=== PATIENT | male | born 1970 | race Caucasian/White ===

== ENCOUNTER 2021-08-01 17:30 | Emergency (ER) | payer MEDICAID, OTHER ==
[2021-08-01] MEDS ORDERED: PROTONIX 40 MG IV IV ONE ×2 (18:32→18:53)
[2021-08-01] MEDS ORDERED: Zofran 4 MG/2 ML VIAL IV ONE (18:32)
[2021-08-01] MEDS ORDERED: Sodium Chloride 0.9% 1000 ML 1,000 ML IV STA (18:32)
--- NOTE | 2021-08-01 18:36 | ERPHSYRPT ---
- History of Present Illness Historian: patient Exam Limitations: no limitations Patient Subjective Stated Complaint: Pt states "On sunday I was vomiting and then the diarrhea started and I just feel terrible." Triage Nursing Assessment: Pt presented alert and oriented X 3, skin wpd tp ambulates with an upright steady gait, able to speak in clear full sentences. Pt in no apparent respiratory distress. Physician History: 51yo wm w N/V/D x 3 days w diffuse abdominal pain rated a 3/10. Pt denies fever/melena/hematochezia/hematemesis/chest pain/cough/dysuria/hematuria/ Pt drinks 6 beers a day. Timing/Duration: day(s) (3 days) Activities at Onset: rest Quality: cramping Abdominal Pain Onset Location: generalized abdomen Pain Radiation: no radiation Severity of Pain-Max: moderate Severity of Pain-Current: mild Modifying Factors: Improves With: vomiting Associated Symptoms: diarrhea, loss of appetite, nausea, vomiting, No back, No chest pain, No diaphoresis, No fever/chills, No fatigue, No headache, No heartbu rn, No neck pain, No rash, No shortness of breath, No syncope, No testicular pain, No weakness Previous symptoms: no prior history Allergies/Adverse Reactions: No Known Drug Allergies Allergy (Verified 08/01/21 17:51) Home Medications: Gabapentin 300 mg PO TID 01/30/17 [History] Hx Tetanus, Diphtheria Vaccination/Date Given: No Hx Influenza Vaccination/Date Given: No Hx Pneumococcal Vaccination/Date Given: No Immunizations Up to Date: Yes Travel Risk - International Travel Have you traveled outside of the country in past 3 weeks: No - Coronavirus Screening Are you exhibiting any of the following symptoms?: No Close contact with a COVID-19 positive Pt in past 14-21 Days: No - Vaccine Status Have you recieved a Covid-19 vaccination: No - Review of Systems Constitutional: No Symptoms, Weakness Eyes: No Symptoms Ears, Nose, & Throat: No Symptoms Respiratory: No Symptoms Cardiac: No Symptoms Abdominal/Gastrointestinal: Abdominal Pain, Nausea, Vomiting, Diarrhea, No Constipation, No Hematemesis, No Hematochezia, No Melena, No Dysphagia Genitourinary Symptoms: No Symptoms Musculoskeletal: No Symptoms Skin: No Symptoms Neurological: No Symptoms Psychological: No Symptoms Endocrine: No Symptoms Hematologic/Lymphatic: No Symptoms Immunological/Allergic: No Symptoms - Past Medical History Pertinent Past Medical History: Yes Cardiac History: Hypertension Musculoskeletal History: Arthritis, Other Psycho-Social History: Anxiety Other Medical History: chronic back pain - Past Surgical History Past Surgical History: Yes Other Surgical History: ear and sinus - Social History Smoking Status: Former smoker Exposure to second hand smoke: Yes Drug Use: none Patient Lives Alone: No Significant Family History: no pertinent family hx - Nursing Vital Signs Nursing Vital Signs: Initial Vital Signs Temperature 97.4 F 08/01/21 17:46 Pulse Rate 93 H 08/01/21 17:46 Respiratory Rate 20 08/01/21 17:46 Blood Pressure 161/102 08/01/21 17:46 O2 Sat by Pulse Oximetry 99 08/01/21 17:46 Pain Scale Pain Intensity 3 Hypertensive - Physical Exam General Appearance: no apparent distress Eye Exam: PERRL/EOMI, eyes nml inspection Ears, Nose, Throat Exam: normal ENT inspection, TMs normal, pharynx normal, moist mucous membranes Neck Exam: normal inspection, non-tender, No supple, No full range of motion, No meningismus, No mass, No Brudzinski, No Kernig's Respiratory Exam: normal breath sounds, lungs clear, airway intact, No respiratory distress Cardiovascular Exam: regular rate/rhythm, normal heart sounds, normal peripheral pulses, No murmur Gastrointestinal/Abdomen Exam: soft, normal bowel sounds, No tenderness Back Exam: normal inspection, normal range of motion, No CVA tenderness, No vertebral tenderness Extremity Exam: normal inspection, normal range of motion, pelvis stable Neurologic Exam: alert, oriented x 3, cooperative, customer experience manager II-XII nml as tested, normal mood/affect, nml cerebellar function, nml station & gait, sensation nml, No motor deficits, No sensory deficit Skin Exam: normal color, warm, dry, No rash Lymphatic Exam: No adenopathy SpO2 Interpretation: normal SpO2: 99 O2 Delivery: Room Air - Course Nursing assessment & vital signs reviewed: Yes - CT Exams Abdomen/Pelvis CT Interpretation: Discussed w/radiologist (Fatty Liver/diverticulosis) Ordered Tests: Active Orders 24 hr Category Date Time Status IV Insertion STAT Care 08/01/21 18:32 Completed ABDOMEN AND PELVIS W CONTRAST [CT] Stat Exams 08/01/21 19:57 Taken AMYLASE Stat Lab 08/01/21 18:30 Completed CBC W DIFF Stat Lab 08/01/21 18:30 Completed CMP Stat Lab 08/01/21 18:30 Completed ETHYL ALCOHOL Stat Lab 08/01/21 18:30 Completed LIPASE Stat Lab 08/01/21 18:30 Completed TROPONIN Q3H Lab 08/01/21 18:30 Completed UA W/RFX UR CULTURE Stat Lab 08/01/21 18:51 Completed Medication Summary Discontinued Medications Generic Name Dose Route Start Last Admin Trade Name Karina PRN Reason Stop Dose Admin Sodium Chloride 1,000 mls @ 999 mls/hr 08/01/21 18:32 08/01/21 20:04 Sodium Chloride 0.9% 1000 Ml IV 08/01/21 19:32 Infused .Q1H1M STA Infusion Sodium Chloride Confirm 08/01/21 18:53 Sodium Chloride 0.9% 1000 Ml Administered 08/01/21 18:54 Dose 1,000 mls @ ud .ROUTE .STK-MED ONE Ondansetron HCl 4 mg 08/01/21 18:32 08/01/21 18:55 Ondansetron Hcl 4 Mg/2 Ml Vial IV 08/01/21 18:33 4 mg STAT ONE Administration Ondansetron HCl Confirm 08/01/21 18:53 Ondansetron Hcl 4 Mg/2 Ml Vial Administered 08/01/21 18:54 Dose 4 mg .ROUTE .STK-MED ONE Pantoprazole Sodium 40 mg 08/01/21 18:32 08/01/21 18:55 Pantoprazole 40 Mg Vial IV 08/01/21 18:33 40 mg STAT ONE Administration Pantoprazole Sodium Confirm 08/01/21 18:53 Pantoprazole 40 Mg Vial Administered 08/01/21 18:54 Dose 40 mg IV .STK-MED ONE Lab/Rad Data: Laboratory Result Diagrams 08/01/21 18:30 08/01/21 18:30 Laboratory Results 08/01/21 08/01/21 08/01/21 Range/Units 18:51 18:30 18:30 WBC (4.0-10.5) K/mm3 RBC (4.1-5.6) M/mm3 Hgb (12.5-18.0) gm/dl Hct (42-50) % MCV (78-100) fl MCH (26-32) pg MCHC (32-36) g/dl RDW (11.5-14.0) % Plt Count (150-450) K/mm3 MPV (7.5-11.0) fl Gran % (36.0-66.0) % Eos # (Auto) (0-0.5) Absolute Lymphs (auto) (1.0-4.6) Absolute Monos (auto) (0.0-1.3) Lymphocytes % (24.0-44.0) % Monocytes % (0.0-12.0) % Eosinophils % (0.00-5.0) % Basophils % (0.0-0.4) % Absolute Granulocytes (1.4-6.9) Basophils # (0-0.4) Sodium (137-145) mmol/L Potassium (3.5-5.1) mmol/L Chloride (98-107) mmol/L Carbon Dioxide (22-30) mmol/L Anion Gap (5-15) MEQ/L BUN (9-20) mg/dL Creatinine (0.66-1.25) mg/dL Estimated GFR ML/MIN Glucose (74-106) mg/dL Calcium (8.4-10.2) mg/dL Total Bilirubin (0.2-1.3) mg/dL AST (17-59) U/L ALT (0-50) U/L Alkaline Phosphatase (38-126) U/L Troponin I < 0.012 (0.000-0.034) ng/mL Serum Total Protein (6.3-8.2) g/dL Albumin (3.5-5.0) g/dL Amylase (30-110) U/L Lipase (23-300) U/L Urine Color YELLOW (YELLOW) Urine Appearance SLIGHTLY CLOUDY (CLEAR) Urine pH 7.0 (5-6) Ur Specific Morgan 1.028 (1.005-1.025) Urine Protein 100 (Negative) Urine Ketones SMALL (NEGATIVE) Urine Blood NEGATIVE (0-5) Freddy/ul Urine Nitrite NEGATIVE (NEGATIVE) Urine Bilirubin NEGATIVE (NEGATIVE) Urine Urobilinogen 2 (0-1) mg/dL Ur Leukocyte Esterase NEGATIVE (NEGATIVE) Urine WBC (Auto) NONE (0-5) /HPF Urine RBC (Auto) 0-2 (0-2) /HPF U Epithel Cells (Auto) NONE (FEW) /HPF Urine Bacteria (Auto) NONE (NEGATIVE) /HPF Urine Mucus (Auto) SLIGHT (NEGATIVE) /HPF Urine Culture Reflexed NO (NO) Urine Glucose NEGATIVE (NEGATIVE) mg/dL Ethyl Alcohol < 10 (0-10) mg/dL 08/01/21 08/01/21 Range/Units 18:30 18:30 WBC 13.9 H (4.0-10.5) K/mm3 RBC 4.00 L (4.1-5.6) M/mm3 Hgb 9.6 L (12.5-18.0) gm/dl Hct 33.0 L (42-50) % MCV 82.5 (78-100) fl MCH 24.0 L (26-32) pg MCHC 29.1 L (32-36) g/dl RDW 19.9 H (11.5-14.0) % Plt Count 270 (150-450) K/mm3 MPV 9.7 (7.5-11.0) fl Gran % 81.4 H (36.0-66.0) % Eos # (Auto) 0 (0-0.5) Absolute Lymphs (auto) 1.19 (1.0-4.6) Absolute Monos (auto) 1.39 H (0.0-1.3) Lymphocytes % 8.5 L (24.0-44.0) % Monocytes % 10.0 (0.0-12.0) % Eosinophils % 0.0 (0.00-5.0) % Basophils % 0.1 (0.0-0.4) % Absolute Granulocytes 11.34 H (1.4-6.9) Basophils # 0.01 (0-0.4) Sodium 142 (137-145) mmol/L Potassium 3.1 L (3.5-5.1) mmol/L Chloride 98 (98-107) mmol/L Carbon Dioxide 29 (22-30) mmol/L Anion Gap 17.3 H (5-15) MEQ/L BUN 21 H (9-20) mg/dL Creatinine 0.98 (0.66-1.25) mg/dL Estimated GFR > 60.0 ML/MIN Glucose 173 H (74-106) mg/dL Calcium 9.2 (8.4-10.2) mg/dL Total Bilirubin 1.00 (0.2-1.3) mg/dL AST 34 (17-59) U/L ALT 30 (0-50) U/L Alkaline Phosphatase 64 (38-126) U/L Troponin I (0.000-0.034) ng/mL Serum Total Protein 7.7 (6.3-8.2) g/dL Albumin 4.4 (3.5-5.0) g/dL Amylase 75 (30-110) U/L Lipase 179 (23-300) U/L Urine Color (YELLOW) Urine Appearance (CLEAR) Urine pH (5-6) Ur Specific Morgan (1.005-1.025) Urine Protein (Negative) Urine Ketones (NEGATIVE) Urine Blood (0-5) Freddy/ul Urine Nitrite (NEGATIVE) Urine Bilirubin (NEGATIVE) Urine Urobilinogen (0-1) mg/dL Ur Leukocyte Esterase (NEGATIVE) Urine WBC (Auto) (0-5) /HPF Urine RBC (Auto) (0-2) /HPF U Epithel Cells (Auto) (FEW) /HPF Urine Bacteria (Auto) (NEGATIVE) /HPF Urine Mucus (Auto) (NEGATIVE) /HPF Urine Culture Reflexed (NO) Urine Glucose (NEGATIVE) mg/dL Ethyl Alcohol (0-10) mg/dL - Progress Progress: improved Progress Note: 08/01/21 21:28 1L NS bolus/40mg IV Protonix/4mg IV Zofran w improvement Counseled pt/family regarding: lab results, diagnosis, need for follow-up, rad results - Departure Departure Disposition: Home Clinical Impression: Nausea & vomiting, Fatty liver, Microcytic anemia Condition: Stable Critical Care Time: No Referrals: TERE DE PAZ NP [Primary Care Provider] - Follow up/PCP as directed Instructions: Anemia Caused by Low Iron, Adult (DC), Nausea and Vomiting, Adult (DC) Additional Instructions: Follow up with your family MD in 1-2 days You need to have a colonoscopy Zofran for nausea/vomiting Decrease your alcohol consumption Return to ER for increasing pain or temperature greater than 100.5 Covid19 test will be back in 2-3 days Forms: Work/School Release Form Prescriptions: Ondansetron HCl [Zofran] 4 mg PO Q6H PRN #10 tablet PRN Reason: Nausea/Vomiting
[2021-08-01 18:41] LABS: Absolute Neutrophil Ct (ANC) 11.34 (1.4-6.9); BASOPHIL % 0.1 % (0.0-0.4); Basophil (Absolute #) 0.01 (0-0.4); Eosinophil (Absolute #) 0 (0-0.5); Hemoglobin 9.6 gm/dl (12.5-18.0); Lymphocyte (Absolute #) 1.19 (1.0-4.6); Lymphocytes % 8.5 % (24.0-44.0); Mean Cell Volume 82.5 fl (78-100); Mean Corpuscular Hgb Concent. 29.1 g/dl (32-36); Mean Platelet Volume 9.7 fl (7.5-11.0); Monocyte (Absolute #) 1.39 (0.0-1.3); Neutrophil % 81.4 % (36.0-66.0); Platelet Count 270 K/mm3 (150-450); Red Cell Distribution Width 19.9 % (11.5-14.0); White Blood Count 13.9 K/mm3 (4.0-10.5)
[2021-08-01 18:45] LABS: ALBUMIN 4.4 g/dL (3.5-5.0); ALKALINE PHOSPHATASE 64 U/L (38-126); AMYLASE 75 U/L (30-110); ANION GAP 17.3 MEQ/L (5-15); BLOOD UREA NITROGEN 21 mg/dL (9-20); CHLORIDE 98 mmol/L (98-107); Calcium 9.2 mg/dL (8.4-10.2); Carbon Dioxide 29 mmol/L (22-30); Creatinine 1 0.98 mg/dL (0.66-1.25); EST GLOMERULAR FILTRATION RATE > 60.0 ML/MIN; Glucose 173 mg/dL (74-106); LIPASE 179 U/L (23-300); Potassium 3.1 mmol/L (3.5-5.1); SGOT/AST 34 U/L (17-59); SGPT/ALT 30 U/L (0-50); SODIUM 142 mmol/L (137-145); Total Protein 7.7 g/dL (6.3-8.2)
[2021-08-01] MEDS ORDERED: Sodium Chloride 0.9% 1000 ML 1,000 ML ONE (18:53)
[2021-08-01] MEDS ORDERED: Zofran 4 MG/2 ML VIAL ONE (18:53)
[2021-08-01 19:48] LABS: Appearance SLIGHTLY CLOUDY (CLEAR); Bilirubin NEGATIVE (NEGATIVE); Blood NEGATIVE Ery/ul (0-5); Glucose NEGATIVE (NEGATIVE); Ketones SMALL (NEGATIVE); Leukocyte Esterase NEGATIVE (NEGATIVE); Mucus SLIGHT /HPF (NEGATIVE); Nitrite NEGATIVE (NEGATIVE); Protein,Urine Dip 100 (Negative); RBC 0-2 /HPF (0-2); Specific Gravity 1.028 (1.005-1.025); Urobilinogen 2 mg/dL (0-1)
[2021-08-01 21:22] VITALS: BP 157/91; PULSE 89
[2021-08-01 21:32] VITALS: O2SAT 99
--- NOTE | 2021-08-02 08:52 | XRAY ---
Indication: Abdomen pain, nausea, vomiting, diarrhea. Multiple contiguous axial images obtained through the abdomen and pelvis using 80 cc Isovue 370 contrast. Comparison: March 25, 2021. Lung bases again demonstrates minimal fibrosis/scarring and tiny medial left lower lobe calcified granuloma. Heart is not enlarged. Noncontrasted stomach and bowel loops appear nonobstructed with normal appendix. Again minimal scattered colonic diverticulosis. Previous diverticulitis has resolved. No free fluid/air. Stable mild diffuse fatty liver and tiny splenic calcified granulomas. Remaining liver, gallbladder, pancreas, spleen, adrenal glands, kidneys, ureters, bladder, and aorta are unremarkable. No pathologic retroperitoneal lymphadenopathy. Osseous structures intact again with minimal degenerative changes throughout the lumbar spine. Impression: 1. Again colonic diverticulosis, fatty liver, and old granulomatous disease. 2. Remaining CT abdomen/pelvis with contrast exam is negative.
== END 2021-08-01 21:48 | disposition home or self-care (01) ==
LOC: ED 17:30
DX: D50.9 Iron deficiency anemia, unspecified (principal); K76.0 Fatty (change of) liver, not elsewhere classified; R11.2 Nausea with vomiting, unspecified; R19.7 Diarrhea, unspecified; I10 Essential (primary) hypertension
CPT/HCPCS: 36000; 36415; 74177; 80053; 80307; 81001; 82150; 83690; 84484; 85025; 96360; 96374; 96375; 99284; U0003; J2405; G0480

== ENCOUNTER 2021-08-08 21:14 | Inpatient (IN) | payer OTHER, SELFPAY ==
[2021-08-08] MEDS ORDERED: Zofran 4 MG/2 ML VIAL IV ONE (21:23)
[2021-08-08] MEDS ORDERED: MORPHINE SULFATE 4 MG INJ IV ONE (21:23)
[2021-08-08] MEDS ORDERED: Sodium Chloride 0.9% 1000 ML 1,000 ML IV STA (21:23)
[2021-08-08] MEDS ORDERED: MORPHINE SULFATE 4 MG INJ ONE (21:27)
[2021-08-08] MEDS ORDERED: Sodium Chloride 0.9% 1000 ML 1,000 ML ONE (21:27)
[2021-08-08] MEDS ORDERED: Zofran 4 MG/2 ML VIAL ONE (21:27)
[2021-08-08 21:48] LABS: Hematocrit 36.2 % (42-50); Hemoglobin 10.6 gm/dl (12.5-18.0); Mean Cell Volume 82.6 fl (78-100); Mean Corpuscular Hemoglobin 24.2 pg (26-32); Mean Corpuscular Hgb Concent. 29.3 g/dl (32-36); Mean Platelet Volume 8.8 fl (7.5-11.0); Platelet Count 502 K/mm3 (150-450); Red Blood Count 4.38 M/mm3 (4.1-5.6); Red Cell Distribution Width 19.7 % (11.5-14.0); White Blood Count 16.6 K/mm3 (4.0-10.5)
--- NOTE | 2021-08-08 21:51 | ERPHSYRPT ---
- History of Present Illness Time Seen by Provider: 08/08/21 21:30 Historian: patient Exam Limitations: no limitations Patient Subjective Stated Complaint: belly pain and vomiting since yesterday every few hours Triage Nursing Assessment: pt c/o abd pain all over stomach, tender on palpation, hypoactive bs x4 quad. Vomiting off and on since last night. Lungs clear, denies cough or sob or chest pain. Pt was in ER last week with stomach virus, got better, but feeling bad again last night. Physician History: Patient is a 51-year-old male presents to our ED with complaints of generalized abdominal pain. Patient states his abdominal pain started yesterday. Abdominal pain is associated with nausea and vomiting. Patient states he cannot hold food down. No diarrhea. No rash. Patient was in our ED exactly 1 week ago today for the same. Patient had a complete work-up including a CAT scan which was nonremarkable per patient. Patient states his abdominal pain resolved after leaving our ED. But the same pain has reoccurred. No trauma. Patient is otherwise healthy. Patient states that he drinks approximately 6 beers per day. Patient denies smoking. Symptoms are mild to moderate in intensity. No spec [facility] worsening improving factors. Patient voices no other complaints or concerns at this time. Timing/Duration: yesterday Activities at Onset: none Quality: aching Abdominal Pain Onset Location: generalized abdomen Pain Radiation: no radiation Severity of Pain-Max: moderate Severity of Pain-Current: mild Modifying Factors: Improves With: palpation Associated Symptoms: nausea, vomiting, No diarrhea, No shortness of breath, No syncope, No testicular pain, No weakness Previous symptoms: same symptoms as today Allergies/Adverse Reactions: No Known Drug Allergies Allergy (Verified 08/08/21 21:28) Home Medications: Gabapentin 300 mg PO TID 01/30/17 [History] Hx Tetanus, Diphtheria Vaccination/Date Given: No Hx Influenza Vaccination/Date Given: No Hx Pneumococcal Vaccination/Date Given: No Immunizations Up to Date: No Travel Risk - International Travel Have you traveled outside of the country in past 3 weeks: No - Coronavirus Screening Are you exhibiting any of the following symptoms?: Yes Symptoms: Vomiting/Diarrhea, Headaches/Body Aches/Fatigue - Vaccine Status Have you recieved a Covid-19 vaccination: No - Review of Systems Constitutional: No Symptoms, No Fever, No Chills Eyes: No Symptoms Ears, Nose, & Throat: No Symptoms Respiratory: No Symptoms, No Cough, No Dyspnea Cardiac: No Symptoms, No Chest Pain, No Edema, No Syncope Abdominal/Gastrointestinal: No Symptoms, No Abdominal Pain, No Nausea, No Vomiting, No Diarrhea Genitourinary Symptoms: No Symptoms, No Dysuria Musculoskeletal: No Symptoms, No Back Pain, No Neck Pain Skin: No Symptoms, No Rash Neurological: No Symptoms, No Dizziness, No Focal Weakness, No Sensory Changes Psychological: No Symptoms Endocrine: No Symptoms Hematologic/Lymphatic: No Symptoms Immunological/Allergic: No Symptoms All Other Systems: Reviewed and Negative - Past Medical History Pertinent Past Medical History: Yes Neurological History: No Pertinent History ENT History: No Pertinent History Cardiac History: Hypertension Respiratory History: No Pertinent History Endocrine Medical History: No Pertinent History Musculoskeletal History: Arthritis, Other GI Medical History: No Pertinent History History: No Pertinent History Psycho-Social History: Anxiety Male Reproductive Disorders: No Pertinent History Other Medical History: chronic back pain - Past Surgical History Past Surgical History: Yes Neuro Surgical History: No Pertinent History Cardiac: No Pertinent History Respiratory: No Pertinent History Gastrointestinal: No Pertinent History Genitourinary: No Pertinent History Musculoskeletal: No Pertinent History Male Surgical History: No Pertinent History Other Surgical History: ear and sinus - Social History Smoking Status: Former smoker Exposure to second hand smoke: Yes Drug Use: none Patient Lives Alone: No Significant Family History: no pertinent family hx - Nursing Vital Signs Nursing Vital Signs: Initial Vital Signs Temperature 97.6 F 08/08/21 21:15 Pulse Rate 77 08/08/21 21:15 Respiratory Rate 20 08/08/21 21:15 Blood Pressure 144/88 08/08/21 21:15 O2 Sat by Pulse Oximetry 100 08/08/21 21:15 Pain Scale Pain Intensity 8 - Physical Exam General Appearance: no apparent distress, alert Eye Exam: PERRL/EOMI, eyes nml inspection Ears, Nose, Throat Exam: normal ENT inspection, pharynx normal, moist mucous membranes Neck Exam: normal inspection, non-tender, supple, full range of motion Respiratory Exam: normal breath sounds, lungs clear, airway intact, No respiratory distress Cardiovascular Exam: regular rate/rhythm, normal heart sounds, normal peripheral pulses Gastrointestinal/Abdomen Exam: soft, No tenderness, No mass Back Exam: normal inspection, normal range of motion, No CVA tenderness, No ve rtebral tenderness Extremity Exam: normal inspection, normal range of motion, pelvis stable Neurologic Exam: alert, oriented x 3, cooperative, normal mood/affect, nml cerebellar function, sensation nml, No motor deficits Skin Exam: normal color, warm, dry Lymphatic Exam: No adenopathy SpO2 Interpretation: normal SpO2: 100 O2 Delivery: Room Air - Course Nursing assessment & vital signs reviewed: Yes - CT Exams Abdomen/Pelvis CT Interpretation: Tele-radiologist Report (Stomach and bowel show probable perforation of the distal gastric antrum which is best appreciated on sagittal image 97. Small amount of perisplenic free fluid. Small amount of free fluid in the pelvis. Free intraperitoneal gas.) Ordered Tests: Active Orders 24 hr Category Date Time Status Corea [Catheter-[place] Corea] STAT Care 08/08/21 23:58 Active IV Insertion STAT Care 08/08/21 21:23 Active NGT [Gastric Tube Insertion] STAT Care 08/08/21 23:58 Active NPO Diet 08/09/21 00:06 Active ABDOMEN AND PELVIS W CONTRAST [CT] Stat Exams 08/08/21 21:23 Taken CHEST 1 VIEW (PORTABLE) Stat Exams 08/09/21 01:06 Taken CBC W DIFF Stat Lab 08/08/21 21:40 Completed CMP Stat Lab 08/08/21 21:40 Completed LIPASE Stat Lab 08/08/21 21:40 Completed Manual Differential NC Stat Lab 08/08/21 21:40 Completed TROPONIN Q3H Lab 08/08/21 21:40 Completed TROPONIN Q3H Lab 08/09/21 00:28 Completed TROPONIN Q3H Lab 08/09/21 03:30 Ordered TROPONIN Q3H Lab 08/09/21 06:30 Ordered TROPONIN Q3H Lab 08/09/21 09:30 Ordered Transfer Order Routine Transfer 08/09/21 Ordered Medication Summary Generic Name Dose Route Start Last Admin Trade Name Freq PRN Reason Stop Dose Admin Sodium Chloride 1,000 mls @ 150 mls/hr 08/09/21 00:00 08/09/21 00:39 Sodium Chloride 0.9% 1000 Ml IV 09/08/21 00:00 150 mls/hr .Q6H40M GAEL Administration Pantoprazole Sodium 80 mg/ 500 mls @ 50 mls/hr 08/09/21 00:15 08/09/21 00:40 Sodium Chloride IV 09/08/21 00:14 50 mls/hr .Q10H GAEL 50 mls/hr Administration Discontinued Medications Generic Name Dose Route Start Last Admin Trade Name Karina PRN Reason Stop Dose Admin Fentanyl Citrate 100 mcg 08/08/21 22:04 08/08/21 22:06 Fentanyl Citrate 100 Mcg/2 Ml* Vial IV 08/08/21 22:05 100 mcg STAT ONE Administration Fentanyl Citrate Confirm 08/08/21 22:06 Fentanyl Citrate 100 Mcg/2 Ml* Vial Administered 08/08/21 22:07 Dose 100 mcg .ROUTE .STK-MED ONE Hydromorphone HCl 1 mg 08/08/21 23:55 08/09/21 00:39 Hydromorphone 1 Mg/1ml Inj 1 Mg/Ml Syringe IV 08/08/21 23:56 1 mg STAT ONE Administration Hydromorphone HCl Confirm 08/09/21 00:36 Hydromorphone 1 Mg/1ml Inj 1 Mg/Ml Syringe Administered 08/09/21 00:37 Dose 1 mg .ROUTE .STK-MED ONE Sodium Chloride 1,000 mls @ 999 mls/hr 08/08/21 21:23 08/08/21 22:40 Sodium Chloride 0.9% 1000 Ml IV 08/08/21 22:23 Infused .Q1H1M STA Infusion Sodium Chloride Confirm 08/08/21 21:27 Sodium Chloride 0.9% 1000 Ml Administered 08/08/21 21:28 Dose 1,000 mls @ ud .ROUTE .STK-MED ONE Piperacillin Sod/Tazobactam 100 mls @ 200 mls/hr 08/08/21 23:57 08/09/21 00:38 Sod 3.375 gm/ Sodium Chloride IV 08/09/21 00:26 200 mls/hr STAT ONE Administration Sodium Chloride Confirm 08/09/21 00:37 Sodium Chloride 100ml Mini-Bag Plus Administered 08/09/21 00:38 Dose 100 mls @ ud IV .STK-MED ONE Sodium Chloride Confirm 08/09/21 00:38 Sodium Chloride 0.9% 500 Ml Administered 08/09/21 00:39 Dose 500 mls @ ud IV .STK-MED ONE Morphine Sulfate 4 mg 08/08/21 21:23 08/08/21 21:30 Morphine Sulfate 4 Mg/Ml Injection IV 08/08/21 21:24 4 mg STAT ONE Administration Morphine Sulfate Confirm 08/08/21 21:27 Morphine Sulfate 4 Mg/Ml Injection Administered 08/08/21 21:28 Dose 4 mg .ROUTE .STK-MED ONE Ondansetron HCl 4 mg 08/08/21 21:23 08/08/21 21:30 Ondansetron Hcl 4 Mg/2 Ml Vial IV 08/08/21 21:24 4 mg STAT ONE Administration Ondansetron HCl Confirm 08/08/21 21:27 Ondansetron Hcl 4 Mg/2 Ml Vial Administered 08/08/21 21:28 Dose 4 mg .ROUTE .STK-MED ONE Pantoprazole Sodium Confirm 08/09/21 00:38 Pantoprazole 40 Mg Vial Administered 08/09/21 00:39 Dose 80 mg IV .STK-MED ONE Piperacillin Sod/Tazobactam Sod Confirm 08/09/21 00:37 Piperacillin/Tazobactam Sodium 3.375 Gm Vial Administered 08/09/21 00:38 Dose 3.375 gm IV .STK-MED ONE Lab/Rad Data: Laboratory Result Diagrams 08/08/21 21:40 08/08/21 21:40 Laboratory Results 08/09/21 08/09/21 08/08/21 Range/Units 00:28 00:08 21:40 WBC (4.0-10.5) K/mm3 RBC (4.1-5.6) M/mm3 Hgb (12.5-18.0) gm/dl Hct (42-50) % MCV (78-100) fl MCH (26-32) pg MCHC (32-36) g/dl RDW (11.5-14.0) % Plt Count (150-450) K/mm3 MPV (7.5-11.0) fl Segmented Neutrophils (36.-66.) % Lymphocytes (Manual) (24-44) % Monocytes (Manual) (0.0-12.0) % Platelet Estimate (NORMAL) RBC Morphology Anisocytosis Sodium (137-145) mmol/L Potassium (3.5-5.1) mmol/L Chloride (98-107) mmol/L Carbon Dioxide (22-30) mmol/L Anion Gap (5-15) MEQ/L BUN (9-20) mg/dL Creatinine (0.66-1.25) mg/dL Estimated GFR ML/MIN Glucose (74-106) mg/dL Calcium (8.4-10.2) mg/dL Total Bilirubin (0.2-1.3) mg/dL AST (17-59) U/L ALT (0-50) U/L Alkaline Phosphatase (38-126) U/L Troponin I < 0.012 < 0.012 (0.000-0.034) ng/mL Serum Total Protein (6.3-8.2) g/dL Albumin (3.5-5.0) g/dL Lipase (23-300) U/L Influenza Type A Ag NEGATIVE (NEGATIVE) Influenza Type B Ag NEGATIVE (NEGATIVE) RSV (PCR) NEGATIVE (Negative) SARS-CoV-2 (PCR) NEGATIVE (NEGATIVE) 08/08/21 08/08/21 Range/Units 21:40 21:40 WBC 16.6 H (4.0-10.5) K/mm3 RBC 4.38 (4.1-5.6) M/mm3 Hgb 10.6 L (12.5-18.0) gm/dl Hct 36.2 L (42-50) % MCV 82.6 (78-100) fl MCH 24.2 L (26-32) pg MCHC 29.3 L (32-36) g/dl RDW 19.7 H (11.5-14.0) % Plt Count 502 H (150-450) K/mm3 MPV 8.8 (7.5-11.0) fl Segmented Neutrophils 89 H (36.-66.) % Lymphocytes (Manual) 6 L (24-44) % Monocytes (Manual) 5 (0.0-12.0) % Platelet Estimate NORMAL (NORMAL) RBC Morphology ABNORMAL Anisocytosis 1+ Sodium 138 (137-145) mmol/L Potassium 4.0 (3.5-5.1) mmol/L Chloride 97 L (98-107) mmol/L Carbon Dioxide 23 (22-30) mmol/L Anion Gap 22.4 H (5-15) MEQ/L BUN 10 (9-20) mg/dL Creatinine 1.04 (0.66-1.25) mg/dL Estimated GFR > 60.0 ML/MIN Glucose 237 H (74-106) mg/dL Calcium 9.1 (8.4-10.2) mg/dL Total Bilirubin 1.10 (0.2-1.3) mg/dL AST 38 (17-59) U/L ALT 57 H (0-50) U/L Alkaline Phosphatase 76 (38-126) U/L Troponin I (0.000-0.034) ng/mL Serum Total Protein 7.5 (6.3-8.2) g/dL Albumin 4.3 (3.5-5.0) g/dL Lipase 206 (23-300) U/L Influenza Type A Ag (NEGATIVE) Influenza Type B Ag (NEGATIVE) RSV (PCR) (Negative) SARS-CoV-2 (PCR) (NEGATIVE) - Progress Progress: improved Progress Note: Case discussed with Dr. Dusty Alicea. He states patient may stay in our hospital. He advises pain medication, Zosyn antibiotic, NG tube, Corea catheter, IV fluids, and a Protonix drip. All ordered. Plan of care discussed with patient. He agrees to admission [facility] for further evaluation and treatment. Case discussed with Dr. Roberts who accepts admission to observation. Plan of care discussed with patient. He agrees to admission at [facility] for further evaluation and treatment. Portions of this note were created with voice recognition technology. There may be grammatical, spelling, punctuation or sound alike errors 08/09/21 00:[address] Dorcas Caballero Counseled pt/family regarding: lab results, diagnosis, rad results - Departure Departure Disposition: Observation Clinical Impression: Abdominal pain, Leukocytosis, Nausea & vomiting, Thrombocytosis, High anion gap metabolic acidosis, Perforated gastric ulcer, Hyperglycemia Condition: Stable Critical Care Time: No Referrals: TERE DE PAZ NP [Primary Care Provider] - Follow up/PCP as directed
[2021-08-08] MEDS ORDERED: SUBLIMAZE 100 MCG/2 ML IV ONE (22:04)
[2021-08-08] MEDS ORDERED: SUBLIMAZE 100 MCG/2 ML ONE (22:06)
[2021-08-08 22:26] LABS: ALBUMIN 4.3 g/dL (3.5-5.0); ALKALINE PHOSPHATASE 76 U/L (38-126); ANION GAP 22.4 MEQ/L (5-15); BLOOD UREA NITROGEN 10 mg/dL (9-20); CHLORIDE 97 mmol/L (98-107); Calcium 9.1 mg/dL (8.4-10.2); Carbon Dioxide 23 mmol/L (22-30); Creatinine 1 1.04 mg/dL (0.66-1.25); EST GLOMERULAR FILTRATION RATE > 60.0 ML/MIN; Glucose 237 mg/dL (74-106); LIPASE 206 U/L (23-300); SGOT/AST 38 U/L (17-59); SODIUM 138 mmol/L (137-145); Total Protein 7.5 g/dL (6.3-8.2)
[2021-08-08 22:32] LABS: SGPT/ALT 57 U/L (0-50)
[2021-08-08 23:39] LABS: Lymphocytes 6 % (24-44); Monocyte 5 % (0.0-12.0); Neutrophils 89 % (36.-66.); Platelet Estimate NORMAL (NORMAL); Total Cells Counted 100
[2021-08-08 23:40] LABS: ANISOCYTOSIS 1+
[2021-08-08] MEDS ORDERED: Hydromorphone 1 mg/ml Injection IV ONE (23:55)
[2021-08-08] MEDS ORDERED: Zosyn 3.375 GM Vial 3.375 GM in Sodium Chloride 100ML MINI-BAG PLUS 100 ML IV ONE (23:57)
[2021-08-09] MEDS ORDERED: Hydromorphone 1 mg/ml Injection ONE (00:36)
[2021-08-09] MEDS ORDERED: Sodium Chloride 100ML MINI-BAG PLUS 100 ML IV ONE ×2 (00:37→05:10)
[2021-08-09] MEDS ORDERED: Zosyn 3.375 GM Vial IV ONE ×2 (00:37→05:09)
[2021-08-09] MEDS ORDERED: Sodium Chloride 0.9% 1000 ML 1,000 ML ONE (00:37)
[2021-08-09] MEDS ORDERED: PROTONIX 40 MG IV IV ONE (00:38)
[2021-08-09] MEDS ORDERED: Sodium Chloride 0.9% 500 ML 500 ML IV ONE (00:38)
[2021-08-09] MEDS: PROTONIX 40 MG IV*** 80 MG in Sodium Chloride 0.9% 500 ML 500 ML IV SCH ×2 (00:40→14:35)
[2021-08-09 01:08] LABS: INFLUENZA A NEGATIVE (NEGATIVE); INFLUENZA B NEGATIVE (NEGATIVE); RESPIRATORY SYNCTIAL VIRUS NEGATIVE (Negative); SARS-CoV-2 Xpert Express NEGATIVE (NEGATIVE)
[2021-08-09] MEDS ORDERED: Sodium Chloride 0.9% 1000 ML 1,000 ML IV SCH ×2 (02:04)
[2021-08-09] MEDS ORDERED: Hydromorphone 1 mg/ml Injection IV PRN (02:04)
[2021-08-09] MEDS ORDERED: Zofran 4 MG/2 ML VIAL IV PRN ×2 (02:04→15:00)
[2021-08-09 04:18] LABS: Absolute Neutrophil Ct (ANC) 19.22 (1.4-6.9); Basophil (Absolute #) 0.01 (0-0.4); Eosinophil (Absolute #) 0 (0-0.5); Hematocrit 34.3 % (42-50); Lymphocyte (Absolute #) 0.46 (1.0-4.6); Lymphocytes % 2.1 % (24.0-44.0); Mean Cell Volume 82.3 fl (78-100); Mean Corpuscular Hgb Concent. 29.2 g/dl (32-36); Mean Platelet Volume 9.2 fl (7.5-11.0); Monocyte (Absolute #) 2.01 (0.0-1.3); Monocytes % 9.3 % (0.0-12.0); Neutrophil % 88.6 % (36.0-66.0); Platelet Count 456 K/mm3 (150-450); Red Blood Count 4.17 M/mm3 (4.1-5.6); Red Cell Distribution Width 19.9 % (11.5-14.0); White Blood Count 21.7 K/mm3 (4.0-10.5)
[2021-08-09 04:30] LABS: ALBUMIN 3.6 g/dL (3.5-5.0); ALKALINE PHOSPHATASE 55 U/L (38-126); ANION GAP 14.4 MEQ/L (5-15); BLOOD UREA NITROGEN 11 mg/dL (9-20); CHLORIDE 103 mmol/L (98-107); Calcium 8.2 mg/dL (8.4-10.2); Carbon Dioxide 24 mmol/L (22-30); Creatinine 1 0.86 mg/dL (0.66-1.25); EST GLOMERULAR FILTRATION RATE > 60.0 ML/MIN; Glucose 198 mg/dL (74-106); Potassium 3.5 mmol/L (3.5-5.1); SGOT/AST 34 U/L (17-59); SODIUM 138 mmol/L (137-145); Total Protein 6.7 g/dL (6.3-8.2)
[2021-08-09 04:36] LABS: SGPT/ALT 50 U/L (0-50)
[2021-08-09] MEDS: Zosyn 3.375 GM Vial 3.375 GM in Sodium Chloride 100ML MINI-BAG PLUS 100 ML IV SCH ×4 (05:58→22:00)
[2021-08-09 07:08] LABS: Slide Review 1 YES
[2021-08-09] MEDS: Hydromorphone 1 mg/ml Injection IV PRN ×2 (07:40→10:42)
[2021-08-09 08:35] LABS: Hematocrit 34.4 % (42-50); Hemoglobin 9.9 gm/dl (12.5-18.0); Mean Cell Volume 83.1 fl (78-100); Mean Corpuscular Hemoglobin 23.9 pg (26-32); Mean Corpuscular Hgb Concent. 28.8 g/dl (32-36); Mean Platelet Volume 9.3 fl (7.5-11.0); Platelet Count 414 K/mm3 (150-450); Red Blood Count 4.14 M/mm3 (4.1-5.6); White Blood Count 18.3 K/mm3 (4.0-10.5)
--- NOTE | 2021-08-09 08:53 | XRAY ---
Indication: Abdomen pain. Nausea, vomiting, diarrhea. Multiple contiguous axial images obtained through the abdomen and pelvis using 80 cc Isovue 370 contrast. Comparison: August 01, 2021. Lung bases again demonstrates bibasilar fibrosis/scarring and tiny left lobe calcified granulomas. Heart not enlarged. Stomach is mildly fluid distended. Gastric antrum now demonstrates wall thickening with new tiny free air bubbles concerning for gastric ulcer with perforation. New tiny free fluid along both colic gutters and pelvis. Stable minimal scattered colonic diverticulosis, fatty liver, and tiny splenic calcified granulomas. Remaining liver, gallbladder, pancreas, spleen, adrenal glands, kidneys, ureters, bladder, and aorta are unremarkable. No pathologic retroperitoneal lymphadenopathy. Impression: 1. New CT findings concerning for gastric ulcer with perforation as detailed. 2. Again colonic diverticulosis, fatty liver, and old granulomatous disease. Comment: Preliminary interpretation made by C. No critical discrepancy.
--- NOTE | 2021-08-09 08:59 | XRAY ---
Indication: NG tube placement. Comparison: July 16, 2008. Portable chest underinflated with new NG tube tip coiled in stomach and small minimal bibasilar subsegmental atelectasis. Remaining heart, upper lungs, and bony thorax unremarkable. New right subdiaphragmatic free air consistent with CT proven gastric perforation.
[2021-08-09 10:11] LABS: ALBUMIN 3.1 g/dL (3.5-5.0); ALKALINE PHOSPHATASE 49 U/L (38-126); ANION GAP 14.4 MEQ/L (5-15); BLOOD UREA NITROGEN 12 mg/dL (9-20); CHLORIDE 105 mmol/L (98-107); Carbon Dioxide 24 mmol/L (22-30); Creatinine 1 0.89 mg/dL (0.66-1.25); EST GLOMERULAR FILTRATION RATE > 60.0 ML/MIN; Glucose 172 mg/dL (74-106); Potassium 3.9 mmol/L (3.5-5.1); SGOT/AST 27 U/L (17-59); SGPT/ALT 40 U/L (0-50); SODIUM 140 mmol/L (137-145)
[2021-08-09] MEDS ORDERED: Lactated Ringers 1,000 ML IV SCH (10:30)
[2021-08-09] MEDS ORDERED: MEFOXIN 2 GM PREMIX** 2 GM/50 ML ML IV SCH (10:30)
[2021-08-09] MEDS ORDERED: DIPRIVAN 200 MG/20 ML IV ONE (11:23)
[2021-08-09] MEDS ORDERED: Versed 2 MG/2 ML Injection ONE (11:23)
[2021-08-09] MEDS ORDERED: Xylocaine-Mpf 2% 5 Ml Vial ONE (11:26)
[2021-08-09] MEDS ORDERED: SUBLIMAZE 100 MCG/2 ML ONE (11:46)
[2021-08-09] MEDS ORDERED: Zemuron 100 MG/10 ML ONE ×2 (11:46→12:56)
[2021-08-09] MEDS ORDERED: Astramorph-Pf 5 MG/10 ML ONE (11:47)
[2021-08-09] MEDS ORDERED: Zofran 4 MG/2 ML VIAL ONE (11:51)
[2021-08-09] MEDS ORDERED: BREVIBLOC 100 MG/10 ML IV ONE (12:01)
[2021-08-09] MEDS ORDERED: LOPRESSOR 5 MG/5 ML INJECTION IV ONE ×2 (12:26→13:44)
--- NOTE | 2021-08-09 12:56 | HP ---
CHIEF COMPLAINT: Abdominal pain. HISTORY OF PRESENT ILLNESS: The patient is a 51-year-old white male patient who reports he has been having abdominal pain since last week. He was seen in the emergency room at that time and released with what was felt to be a viral illness. The patient represented due to excruciating abdominal pain on 08/08/2021 with complaints of mid and epigastric pain. The patient was evaluated in the emergency room and found to have what appeared to be a perforated gastric ulcer. The patient has been admitted for re-evaluation and management. PAST MEDICAL/SURGICAL HISTORY: Significant for neuropathy for which he takes gabapentin 300 mg t.i.d. He is otherwise a healthy fellow. MEDICATIONS: Gabapentin. Sertraline for apparent depression issues. ALLERGIES: NKDA. PHYSICAL EXAMINATION: His current vital signs from the emergency room showed temperature 97.6F, pulse 77, respiratory rate 20, blood pressure 144/88. O2 saturation 100%. HEENT: Normocephalic, atraumatic. Pupils equal round reactive to light. Extraocular movements intact. Oropharynx is pink and moist. NECK: Supple without lymphadenopathy, thyromegaly or JVD. CHEST: Clear to auscultation. HEART: Regular rate and rhythm. ABDOMEN: Exquisitely tender especially in the epigastric region. No palpable masses were felt. EXTREMITIES: Without cyanosis, clubbing or edema. NEUROLOGIC: The patient is alert and oriented x3. No focal deficits noted. LAB DATA AND TESTS: Evaluation in the emergency room CT scan with and without contrast impression was most suggestive of perforated ulcer involving the distal gastric antrum. There apparently was some free air noted in the area as well. The patient's laboratory studies otherwise showed influenza and RSV to be negative. White blood cell count 16.6, hemoglobin 10.6, PLT count 502,000. He had troponin less than 0.012. His sugar was 237 nonfasting. BUN 10, creatinine 1.04. Electrolytes were essentially normal. Lipase was 206 and in the normal range. ASSESSMENT: A patient with what appears to be a perforated peptic ulcer. Surgery consultation has been obtained. The patient will have a NG tube placed for gut rest and a Corea catheter will be placed, sequential compression devices for the legs to prevent deep vein thrombosis. He has been placed on Dilaudid for pain control and Zosyn for antibiotic coverage. He will be seen by surgery later this morning.
[2021-08-09] MEDS ORDERED: Decadron 4 MG INJ ONE ×2 (13:08→13:10)
[2021-08-09] MEDS ORDERED: EPINEPHRINE 1MG/ML AMP ONE (13:10)
[2021-08-09] MEDS ORDERED: BRIDION 200MG/2ML IV ONE (13:25)
[2021-08-09] MEDS ORDERED: PHENYLEPHRINE HCL ONE (13:32)
[2021-08-09] MEDS ORDERED: Lactated Ringers 1,000 ML IV ONE (13:38)
[2021-08-09 13:57] LABS: Slide Review 1 YES
[2021-08-09] MEDS ORDERED: PITRESSIN 20 UNITS IJ ONE (14:26)
[2021-08-09] MEDS ORDERED: FEVERALL 650 MG RC PRN (15:00)
[2021-08-09] MEDS ORDERED: PERCOCET TABLET 5/325MG PO PRN (15:00)
[2021-08-09] MEDS ORDERED: Narcan 0.4 MG/ML IV PRN (15:00)
[2021-08-09] MEDS ORDERED: Nubain 10 MG/ML IV PRN (15:00)
[2021-08-09] MEDS ORDERED: CLARITIN 10 MG PO PRN (15:00)
[2021-08-09] MEDS ORDERED: Sodium Chloride 0.9% 10 ML FLUSH Syringe IJ PRN (15:00)
[2021-08-09] MEDS ORDERED: DEMEROL 50 MG IV PRN (15:00)
[2021-08-09] MEDS ORDERED: BENADRYL 50 MG/ML IV PRN (15:00)
[2021-08-09] MEDS: D5W/0.45NS W/ 20mEq KCl 1000 ML 1,000 ML IV SCH (16:49)
[2021-08-10] MEDS: D5W/0.45NS W/ 20mEq KCl 1000 ML 1,000 ML IV SCH ×2 (01:16→16:35)
[2021-08-10 05:14] LABS: ANION GAP 8.4 MEQ/L (5-15); BLOOD UREA NITROGEN 13 mg/dL (9-20); CHLORIDE 103 mmol/L (98-107); Calcium 7.5 mg/dL (8.4-10.2); Carbon Dioxide 25 mmol/L (22-30); Creatinine 1 0.99 mg/dL (0.66-1.25); EST GLOMERULAR FILTRATION RATE > 60.0 ML/MIN; Glucose 145 mg/dL (74-106); Potassium 3.4 mmol/L (3.5-5.1); SODIUM 133 mmol/L (137-145)
[2021-08-10 05:18] LABS: Hematocrit 28.4 % (42-50); Hemoglobin 8.1 gm/dl (12.5-18.0); Mean Cell Volume 83.5 fl (78-100); Mean Corpuscular Hemoglobin 23.8 pg (26-32); Mean Corpuscular Hgb Concent. 28.5 g/dl (32-36); Mean Platelet Volume 9.4 fl (7.5-11.0); Platelet Count 327 K/mm3 (150-450); Red Cell Distribution Width 19.7 % (11.5-14.0)
[2021-08-10] MEDS: Zosyn 3.375 GM Vial 3.375 GM in Sodium Chloride 100ML MINI-BAG PLUS 100 ML IV SCH ×3 (06:09→22:26)
--- NOTE | 2021-08-10 07:59 | OP ---
SURGERY DATE/TIME: 08/09/2021 1146 PREOPERATIVE DIAGNOSIS: Perforated ulcer. POSTOPERATIVE DIAGNOSIS: Perforated ulcer with central abdominal fluid. PROCEDURES: 1) Preprocedure EGD. 2) Laparotomy with Gage patch. 3) Evacuation of intra-abdominal fluid and irrigation. 4) Post-procedure EGD. SURGEON: Dusty Alicea M.D. ANESTHESIA: General. COMPLICATIONS: None. CONDITION: Stable. ESTIMATED BLOOD LOSS: None. DRAINS: One. INDICATION: A patient with what seems to be a perforated ulcer. DESCRIPTION OF PROCEDURE: Taken to endoscopy. General anesthetic. A gastroscope was placed. Body tapered down into the antrum headed towards what would be the course there, there was a hole on the anterior surface and it still popped right out into a cavity about 4 inches sort of like a eloisa of bread. It was dark and black and chronically irritated. The scope did not go distal at all. It was felt that laparoscopy was probably not in order. Upper midline incision was made. There was 800 cc of discolored fluid that was taken out of the abdomen. As this was taken out it was irrigated with 3 liters of normal saline until clear. All four quadrants were generously irrigated at the end of dissection. There was no other obvious pathology. The liver was shown to be whole. The liver was fairly firm. The hole was just around 1.2 cm anterior surface right at the pylorus just slightly on the gastric side. A right angle was placed and the patient's cavity that had been seen on the scope was basically omentum covering over this area. After this was all broken down the ulcer is very much visible. A Carmalt clamp was placed proximally and distally. Two sutures were placed distally in order to make sure that they did not make a pseudochannel or punch-out the distal channel. Four bites stomach, pylorus, stomach, pylorus, stomach, pylorus were taken. A portion of omentum was brought up and tucked under this and this was all tied down together. A 10 HANSEL in the right upper quadrant. The scope was re-introduced and the scope went down the second portion of the duodenum now without issue. Suction and irrigated. Skin closed with lynnette. Sterile dressing applied. The patient tolerated the procedure satisfactory.
[2021-08-10 08:42] LABS: ATYPICAL LYMPHS 1 %; BAND 1 % (0.0-2.0); Lymphocytes 9 % (24-44); Monocyte 6 % (0.0-12.0); Neutrophils 83 % (36.-66.); Total Cells Counted 100
[2021-08-10 08:43] LABS: ANISOCYTOSIS 1+; Hypochromia 1+; Microcytosis 1+; Platelet Estimate NORMAL (NORMAL); Toxic Granulation 1+
[2021-08-10] MEDS ORDERED: PHARMACY DOSING REQUIRED: VANCOMYCIN IV STA (08:45)
[2021-08-10] MEDS: MORPHINE SULFATE 2 MG INJ IV PRN ×2 (09:23→12:04)
[2021-08-10] MEDS: FLAGYL 500 MG IVPB 500 MG/100 ML BAG IV SCH ×2 (09:27→16:44)
[2021-08-10] MEDS: ENOXAPARIN SODIUM SQ SCH (09:27)
[2021-08-10] MEDS: PROTONIX 40 MG IV IV SCH (09:28)
[2021-08-10] MEDS ORDERED: HOLD NARCOTIC ANALGESICS AND SEDATIVES X24 HR MC SCH (10:00)
[2021-08-10] MEDS: VANCOMYCIN 1.25 GM/250 ML BAG 1.25 GM/250 ML PIGGYBACK IV SCH (11:24)
[2021-08-10] MEDS: TYLENOL 325 MG PO PRN ×2 (12:04→16:35)
[2021-08-10] MEDS: Hydromorphone 1 mg/ml Injection IV PRN ×3 (15:57→22:35)
[2021-08-11] MEDS: VANCOMYCIN 1.25 GM/250 ML BAG 1.25 GM/250 ML PIGGYBACK IV SCH ×3 (00:16→23:20)
[2021-08-11] MEDS: FLAGYL 500 MG IVPB 500 MG/100 ML BAG IV SCH ×3 (01:37→16:35)
[2021-08-11] MEDS: Hydromorphone 1 mg/ml Injection IV PRN ×2 (01:40→04:54)
[2021-08-11] MEDS: Zosyn 3.375 GM Vial 3.375 GM in Sodium Chloride 100ML MINI-BAG PLUS 100 ML IV SCH ×3 (05:33→22:11)
[2021-08-11 05:55] LABS: Hematocrit 29.3 % (42-50); Hemoglobin 8.3 gm/dl (12.5-18.0); Mean Cell Volume 82.3 fl (78-100); Mean Corpuscular Hemoglobin 23.3 pg (26-32); Mean Corpuscular Hgb Concent. 28.3 g/dl (32-36); Platelet Count 435 K/mm3 (150-450); Red Blood Count 3.56 M/mm3 (4.1-5.6); Red Cell Distribution Width 19.5 % (11.5-14.0); White Blood Count 23.1 K/mm3 (4.0-10.5)
[2021-08-11 06:17] LABS: ALBUMIN 2.5 g/dL (3.5-5.0); ALKALINE PHOSPHATASE 44 U/L (38-126); ANION GAP 7.1 MEQ/L (5-15); BLOOD UREA NITROGEN 18 mg/dL (9-20); CHLORIDE 103 mmol/L (98-107); Calcium 7.2 mg/dL (8.4-10.2); Carbon Dioxide 25 mmol/L (22-30); Creatinine 1 0.97 mg/dL (0.66-1.25); EST GLOMERULAR FILTRATION RATE > 60.0 ML/MIN; Glucose 130 mg/dL (74-106); Potassium 3.5 mmol/L (3.5-5.1); SGOT/AST 27 U/L (17-59); SGPT/ALT 22 U/L (0-50); SODIUM 131 mmol/L (137-145); Total Protein 5.3 g/dL (6.3-8.2)
[2021-08-11 07:39] LABS: BAND 8 % (0.0-2.0); Lymphocytes 5 % (24-44); Monocyte 10 % (0.0-12.0); Neutrophils 77 % (36.-66.); Platelet Estimate INCREASED (NORMAL); Total Cells Counted 100
[2021-08-11 07:40] LABS: ANISOCYTOSIS 2+; Absolute Neutrophil Ct (ANC) 19.91 (1.4-6.9); Hypochromia 1+
[2021-08-11] MEDS: DILAUDID 1 MG/1ML PCA IV PRN ×2 (07:50→19:13)
[2021-08-11] MEDS: Sodium Chloride 0.9% 1000 ML 1,000 ML IV SCH ×2 (07:58→18:24)
[2021-08-11] MEDS: ENOXAPARIN SODIUM SQ SCH (10:12)
[2021-08-11] MEDS: PROTONIX 40 MG IV IV SCH (10:12)
--- NOTE | 2021-08-11 11:53 | XRAY ---
Indication: Postop elevated WBC. Comparison: August 09, 2021. PA/lateral chest demonstrates new mild bibasilar subsegmental atelectasis and tiny bibasilar effusions. Remaining heart and upper lungs unremarkable. NG tube tip remains in stomach with new left midabdomen air distended bowel loop presumed postoperative ileus and new right mid abdomen drainage tubing.
--- NOTE | 2021-08-11 11:56 | XRAY ---
Indication: Postoperative abdomen pain. Comparison: None KUB demonstrates mild uniformly air distended small bowel loops throughout favoring postoperative ileus. Incidental right upper quadrant surgical drainage tubing, midline surgical clips, and NG tube tip in stomach. No large free air. Solid organs and osseous structures unremarkable.
[2021-08-11] MEDS: TYLENOL 325 MG PO PRN (16:40)
[2021-08-12] MEDS: FLAGYL 500 MG IVPB 500 MG/100 ML BAG IV SCH ×3 (01:00→17:12)
[2021-08-12] MEDS: Sodium Chloride 0.9% 1000 ML 1,000 ML IV SCH ×3 (03:43→21:32)
[2021-08-12 05:33] LABS: Hematocrit 27.5 % (42-50); Hemoglobin 7.9 gm/dl (12.5-18.0); Mean Cell Volume 81.4 fl (78-100); Mean Corpuscular Hemoglobin 23.4 pg (26-32); Mean Corpuscular Hgb Concent. 28.7 g/dl (32-36); Mean Platelet Volume 8.7 fl (7.5-11.0); Platelet Count 394 K/mm3 (150-450); Red Blood Count 3.38 M/mm3 (4.1-5.6); Red Cell Distribution Width 19.1 % (11.5-14.0); White Blood Count 16.9 K/mm3 (4.0-10.5)
[2021-08-12] MEDS ORDERED: NORCO 5/325 MG PO PRN (06:00)
[2021-08-12] MEDS: Zosyn 3.375 GM Vial 3.375 GM in Sodium Chloride 100ML MINI-BAG PLUS 100 ML IV SCH ×3 (06:07→23:50)
[2021-08-12 06:34] LABS: ALBUMIN 2.4 g/dL (3.5-5.0); ALKALINE PHOSPHATASE 46 U/L (38-126); ANION GAP 11.5 MEQ/L (5-15); BLOOD UREA NITROGEN 12 mg/dL (9-20); CHLORIDE 104 mmol/L (98-107); Calcium 7.1 mg/dL (8.4-10.2); Carbon Dioxide 22 mmol/L (22-30); Creatinine 1 0.78 mg/dL (0.66-1.25); EST GLOMERULAR FILTRATION RATE > 60.0 ML/MIN; Glucose 96 mg/dL (74-106); Potassium 3.3 mmol/L (3.5-5.1); SGOT/AST 27 U/L (17-59); SGPT/ALT 17 U/L (0-50); SODIUM 133 mmol/L (137-145); Total Protein 5.2 g/dL (6.3-8.2)
[2021-08-12] MEDS: DILAUDID 1 MG/1ML PCA IV PRN (06:37)
[2021-08-12 06:54] LABS: Eosinophil 1 % (0.00-3.0); Lymphocytes 10 % (24-44); Monocyte 3 % (0.0-12.0); Neutrophils 86 % (36.-66.); Total Cells Counted 100
[2021-08-12 06:55] LABS: Platelet Estimate NORMAL (NORMAL)
[2021-08-12] MEDS: ENOXAPARIN SODIUM SQ SCH (09:01)
[2021-08-12] MEDS: PROTONIX 40 MG IV IV SCH (09:01)
[2021-08-12] MEDS: Hydromorphone 1 mg/ml Injection IV PRN ×4 (09:13→21:32)
[2021-08-12] MEDS ORDERED: TROUGH DRUG LEVELS IJ ONE (09:30)
[2021-08-12] MEDS: VANCOMYCIN 1.25 GM/250 ML BAG 1.25 GM/250 ML PIGGYBACK IV SCH ×2 (11:36→21:33)
[2021-08-12] MEDS: PROTONIX 40 MG IV*** 80 MG in Sodium Chloride 0.9% 500 ML 500 ML IV SCH (14:27)
[2021-08-12] MEDS ORDERED: VANCOMYCIN 1.25 GM/250 ML BAG 1.25 GM/250 ML PIGGYBACK IV SCH (22:00)
[2021-08-13] MEDS: FLAGYL 500 MG IVPB 500 MG/100 ML BAG IV SCH ×3 (01:36→16:50)
[2021-08-13] MEDS: Hydromorphone 1 mg/ml Injection IV PRN ×5 (04:02→20:57)
[2021-08-13] MEDS: VANCOMYCIN 1.25 GM/250 ML BAG 1.25 GM/250 ML PIGGYBACK IV SCH ×3 (05:24→22:45)
[2021-08-13] MEDS: Zosyn 3.375 GM Vial 3.375 GM in Sodium Chloride 100ML MINI-BAG PLUS 100 ML IV SCH ×3 (06:34→20:57)
[2021-08-13 06:56] LABS: Hematocrit 28.2 % (42-50); Hemoglobin 8.3 gm/dl (12.5-18.0); Mean Cell Volume 79.4 fl (78-100); Mean Corpuscular Hemoglobin 23.4 pg (26-32); Mean Corpuscular Hgb Concent. 29.4 g/dl (32-36); Mean Platelet Volume 8.8 fl (7.5-11.0); Platelet Count 398 K/mm3 (150-450); Red Blood Count 3.55 M/mm3 (4.1-5.6); Red Cell Distribution Width 19.1 % (11.5-14.0)
[2021-08-13 07:06] LABS: ALBUMIN 2.4 g/dL (3.5-5.0); ALKALINE PHOSPHATASE 41 U/L (38-126); ANION GAP 13.5 MEQ/L (5-15); BLOOD UREA NITROGEN 9 mg/dL (9-20); CHLORIDE 105 mmol/L (98-107); Calcium 7.2 mg/dL (8.4-10.2); Creatinine 1 0.61 mg/dL (0.66-1.25); EST GLOMERULAR FILTRATION RATE > 60.0 ML/MIN; Glucose 94 mg/dL (74-106); Potassium 3.2 mmol/L (3.5-5.1); SGOT/AST 21 U/L (17-59); SGPT/ALT 15 U/L (0-50); SODIUM 132 mmol/L (137-145); Total Protein 5.1 g/dL (6.3-8.2)
[2021-08-13 07:10] LABS: Carbon Dioxide 16 mmol/L (22-30)
[2021-08-13] MEDS: Sodium Chloride 0.9% 1000 ML 1,000 ML IV SCH (08:44)
[2021-08-13] MEDS: PROTONIX 40 MG IV IV SCH (09:03)
[2021-08-13] MEDS: ENOXAPARIN SODIUM SQ SCH (09:07)
[2021-08-13 09:11] LABS: ANISOCYTOSIS 1+; Eosinophil 1 % (0.00-3.0); Hypochromia 1+; Lymphocytes 10 % (24-44); Metamyelocyte 1 %; Monocyte 14 % (0.0-12.0); Neutrophils 74 % (36.-66.); Platelet Estimate NORMAL (NORMAL); Polychromasia 1+; Total Cells Counted 100
[2021-08-13] MEDS: Sodium Chloride 0.9% W/ 20 mEq KCl/LITER 1,000 ML IV SCH ×2 (10:33→20:58)
[2021-08-14] MEDS: FLAGYL 500 MG IVPB 500 MG/100 ML BAG IV SCH ×3 (01:35→17:54)
[2021-08-14] MEDS: Hydromorphone 1 mg/ml Injection IV PRN ×4 (02:37→21:54)
[2021-08-14 05:58] LABS: Hematocrit 27.2 % (42-50); Mean Cell Volume 79.1 fl (78-100); Mean Corpuscular Hemoglobin 23.3 pg (26-32); Mean Corpuscular Hgb Concent. 29.4 g/dl (32-36); Mean Platelet Volume 8.7 fl (7.5-11.0); Platelet Count 431 K/mm3 (150-450); Red Blood Count 3.44 M/mm3 (4.1-5.6); Red Cell Distribution Width 19.2 % (11.5-14.0); White Blood Count 17.2 K/mm3 (4.0-10.5)
[2021-08-14] MEDS: Zosyn 3.375 GM Vial 3.375 GM in Sodium Chloride 100ML MINI-BAG PLUS 100 ML IV SCH ×3 (06:09→21:55)
[2021-08-14 06:51] LABS: ALBUMIN 2.3 g/dL (3.5-5.0); ALKALINE PHOSPHATASE 44 U/L (38-126); ANION GAP 11.7 MEQ/L (5-15); BLOOD UREA NITROGEN 7 mg/dL (9-20); CHLORIDE 105 mmol/L (98-107); Calcium 7.3 mg/dL (8.4-10.2); Carbon Dioxide 18 mmol/L (22-30); EST GLOMERULAR FILTRATION RATE > 60.0 ML/MIN; Glucose 94 mg/dL (74-106); Potassium 3.5 mmol/L (3.5-5.1); SGOT/AST 21 U/L (17-59); SGPT/ALT 13 U/L (0-50); SODIUM 131 mmol/L (137-145); Total Protein 5.2 g/dL (6.3-8.2)
[2021-08-14] MEDS: VANCOMYCIN 1.25 GM/250 ML BAG 1.25 GM/250 ML PIGGYBACK IV SCH ×3 (07:16→22:51)
[2021-08-14] MEDS ORDERED: TROUGH DRUG LEVELS IJ ONE (08:45)
[2021-08-14 08:56] LABS: BAND 1 % (0.0-2.0); Eosinophil 4 % (0.00-3.0); Lymphocytes 6 % (24-44); Metamyelocyte 1 %; Monocyte 12 % (0.0-12.0); Neutrophils 76 % (36.-66.); Platelet Estimate NORMAL (NORMAL); Total Cells Counted 100
[2021-08-14 08:57] LABS: ANISOCYTOSIS 1+; Hypersegmented Polys 1+; Hypochromia 1+; Polychromasia 1+; Toxic Granulation 1+
[2021-08-14] MEDS: ENOXAPARIN SODIUM SQ SCH (10:11)
[2021-08-14] MEDS: PROTONIX 40 MG IV IV SCH (10:11)
[2021-08-14] MEDS: Sodium Chloride 0.9% W/ 20 mEq KCl/LITER 1,000 ML IV SCH (10:18)
[2021-08-14] MEDS ORDERED: CLINDAMYCIN-D5W 600 MG/50 ML*** 600 MG/50 ML BAG IV SCH (12:00)
[2021-08-14] MEDS: CLINDAMYCIN-D5W 600 MG/50 ML*** 600 MG/50 ML BAG IV SCH (18:26)
[2021-08-15] MEDS: CLINDAMYCIN-D5W 600 MG/50 ML*** 600 MG/50 ML BAG IV SCH ×4 (00:14→19:38)
[2021-08-15] MEDS: Hydromorphone 1 mg/ml Injection IV PRN ×5 (02:09→23:06)
[2021-08-15] MEDS: Sodium Chloride 0.9% W/ 20 mEq KCl/LITER 1,000 ML IV SCH ×2 (02:22→20:45)
[2021-08-15] MEDS: FLAGYL 500 MG IVPB 500 MG/100 ML BAG IV SCH ×3 (02:22→18:53)
[2021-08-15 05:18] LABS: Hematocrit 26.2 % (42-50); Hemoglobin 7.8 gm/dl (12.5-18.0); Mean Cell Volume 78.9 fl (78-100); Mean Corpuscular Hemoglobin 23.5 pg (26-32); Mean Corpuscular Hgb Concent. 29.8 g/dl (32-36); Mean Platelet Volume 8.4 fl (7.5-11.0); Platelet Count 434 K/mm3 (150-450); Red Blood Count 3.32 M/mm3 (4.1-5.6); Red Cell Distribution Width 19.7 % (11.5-14.0); White Blood Count 16.1 K/mm3 (4.0-10.5)
[2021-08-15] MEDS: Zosyn 3.375 GM Vial 3.375 GM in Sodium Chloride 100ML MINI-BAG PLUS 100 ML IV SCH ×3 (05:26→20:57)
[2021-08-15 05:46] LABS: ALKALINE PHOSPHATASE 42 U/L (38-126); ANION GAP 13.6 MEQ/L (5-15); BLOOD UREA NITROGEN 5 mg/dL (9-20); CHLORIDE 105 mmol/L (98-107); Calcium 7.1 mg/dL (8.4-10.2); Creatinine 1 0.69 mg/dL (0.66-1.25); EST GLOMERULAR FILTRATION RATE > 60.0 ML/MIN; Glucose 91 mg/dL (74-106); Potassium 3.6 mmol/L (3.5-5.1); SGOT/AST 18 U/L (17-59); SGPT/ALT 12 U/L (0-50); SODIUM 131 mmol/L (137-145); Total Protein 4.6 g/dL (6.3-8.2)
[2021-08-15 05:48] LABS: Carbon Dioxide 16 mmol/L (22-30)
[2021-08-15] MEDS: VANCOMYCIN 1.25 GM/250 ML BAG 1.25 GM/250 ML PIGGYBACK IV SCH ×3 (06:52→21:47)
--- NOTE | 2021-08-15 10:12 | XRAY ---
Indication: Status post surgery for perforated ulcer. Possible aspiration. Limited single contrast upper GI exam performed using diluted Gastrografin. Patient sipped Gastrografin totaling 30 cc without miss swallow or aspiration. Esophagus is normal in course and caliber without focal stricture, obstruction, or filling defect. Gastrografin freely emptied into the stomach. No obvious filling defect. There is delayed gastric emptying. Duodenum is mildly distended without stricture, obstruction, or extravasation of contrast. Single overhead radiograph demonstrates demonstrates Gastrografin in the stomach, duodenum, and proximal jejunum without abnormal extravasation. Visualized small bowel loops are air distended up to 6 cm in diameter. Incidental right upper quadrant surgical drainage tubing and midline cutaneous lynnette. Impression: 1. Negative for aspiration or Gastrografin extravasation. 2. Incidental air distended small bowel loops presumed postoperative ileus. 3. Approximately 1.6 minute fluoroscopy used.
[2021-08-15] MEDS: ENOXAPARIN SODIUM SQ SCH (10:42)
[2021-08-15 11:06] LABS: ANISOCYTOSIS 1+; BAND 2 % (0.0-2.0); Eosinophil 3 % (0.00-3.0); Hypochromia 1+; Lymphocytes 12 % (24-44); Monocyte 5 % (0.0-12.0); Neutrophils 78 % (36.-66.); Total Cells Counted 100
[2021-08-15 11:07] LABS: Platelet Estimate NORMAL (NORMAL); Toxic Granulation 1+
[2021-08-15] MEDS: PROTONIX 40 MG IV IV SCH (14:00)
[2021-08-16] MEDS: CLINDAMYCIN-D5W 600 MG/50 ML*** 600 MG/50 ML BAG IV SCH ×5 (00:19→23:56)
[2021-08-16] MEDS: FLAGYL 500 MG IVPB 500 MG/100 ML BAG IV SCH (01:24)
[2021-08-16] MEDS: Hydromorphone 1 mg/ml Injection IV PRN ×5 (05:02→23:56)
[2021-08-16 05:29] LABS: Hematocrit 26.8 % (42-50); Mean Cell Volume 77.7 fl (78-100); Mean Corpuscular Hemoglobin 23.2 pg (26-32); Mean Corpuscular Hgb Concent. 29.9 g/dl (32-36); Mean Platelet Volume 8.5 fl (7.5-11.0); Platelet Count 470 K/mm3 (150-450); Red Blood Count 3.45 M/mm3 (4.1-5.6); Red Cell Distribution Width 20.1 % (11.5-14.0); White Blood Count 12.5 K/mm3 (4.0-10.5)
[2021-08-16] MEDS ORDERED: TROUGH DRUG LEVELS IJ ONE (05:30)
[2021-08-16] MEDS: Zosyn 3.375 GM Vial 3.375 GM in Sodium Chloride 100ML MINI-BAG PLUS 100 ML IV SCH ×3 (05:43→21:07)
[2021-08-16 05:54] LABS: ALBUMIN 2.1 g/dL (3.5-5.0); ALKALINE PHOSPHATASE 47 U/L (38-126); ANION GAP 12.2 MEQ/L (5-15); BLOOD UREA NITROGEN 3 mg/dL (9-20); CHLORIDE 103 mmol/L (98-107); Calcium 6.9 mg/dL (8.4-10.2); Creatinine 1 0.57 mg/dL (0.66-1.25); EST GLOMERULAR FILTRATION RATE > 60.0 ML/MIN; Glucose 101 mg/dL (74-106); Potassium 3.5 mmol/L (3.5-5.1); SGOT/AST 20 U/L (17-59); SGPT/ALT 12 U/L (0-50); SODIUM 129 mmol/L (137-145); Total Protein 4.8 g/dL (6.3-8.2)
[2021-08-16 06:00] LABS: Carbon Dioxide 17 mmol/L (22-30)
[2021-08-16] MEDS: VANCOMYCIN 1.25 GM/250 ML BAG 1.25 GM/250 ML PIGGYBACK IV SCH ×3 (06:34→22:12)
[2021-08-16 07:08] LABS: ANISOCYTOSIS 1+; Eosinophil 1 % (0.00-3.0); Hypochromia 1+; Lymphocytes 5 % (24-44); Monocyte 11 % (0.0-12.0); Neutrophils 83 % (36.-66.); Poikilocytosis 1+; Polychromasia 1+; Total Cells Counted 100
[2021-08-16 07:09] LABS: Platelet Estimate NORMAL (NORMAL)
--- NOTE | 2021-08-16 09:06 | XRAY ---
Indication: Intra-abdominal abscess. History perforated ulcer. Status post upper GI exam performed earlier that day. Multiple contiguous axial images obtained through the abdomen and pelvis using 80 cc Isovue 370 contrast. Enteric contrast also used. Comparison: August 08, 2021. Lung bases demonstrates new small left and tiny right base pleural effusions with moderate compressive atelectasis. Heart not enlarged. New anterior right upper quadrant surgical drainage tubing. Small left subdiaphragmatic fluid collection appears minimally larger measuring at least 1.8 cm and thickness. Elsewhere no walled off fluid collection or free air. Noncontrasted stomach unremarkable. Contrasted small bowel loops are now moderately distended up to 3.8 cm diameter with synchronous fluid leveling favoring postoperative ileus. Majority of the colon is decompressed again with scattered colonic diverticulosis. No enteric contrast extravasation/leak. Posterior inferior spleen demonstrates new focus of infarct measuring at least 4.6 x 3.5 x 5.0 cm. Urinary bladder demonstrates new intraluminal air either from recent catheterization versus gas-forming infection. Liver again demonstrates mild diffuse fatty attenuation. Spleen again demonstrates a few calcified granulomas. Remaining liver, gallbladder, pancreas, spleen, adrenal glands, kidneys, ureters, bladder, and aorta are unremarkable. Impression: 1. New bibasilar pleural effusions/atelectasis without cardiomegaly. 2. New splenic infarct. 3. New right upper quadrant surgical drainage tubing. Minimally enlarging left subdiaphragmatic fluid collection. No walled off fluid collection or free air. 4. New postoperative ileus. 5. New urinary bladder intraluminal air either iatrogenic versus gas-forming infection. 6. Again fatty liver, colonic diverticulosis, and old granulomatous disease.
[2021-08-16] MEDS: ENOXAPARIN SODIUM SQ SCH (09:37)
[2021-08-16] MEDS: PROTONIX 40 MG IV IV SCH (09:37)
[2021-08-16] MEDS: HYDROCODONE-ACETAMIN 10-325 MG PO PRN ×2 (11:03→15:02)
[2021-08-16] MEDS ORDERED: Zosyn 3.375 GM Vial IV ONE (14:56)
[2021-08-16] MEDS: TYLENOL 325 MG PO PRN (20:31)
[2021-08-16] MEDS: Sodium Chloride 0.9% W/ 20 mEq KCl/LITER 1,000 ML IV SCH (22:12)
[2021-08-17] MEDS: Hydromorphone 1 mg/ml Injection IV PRN (05:14)
[2021-08-17] MEDS: Zosyn 3.375 GM Vial 3.375 GM in Sodium Chloride 100ML MINI-BAG PLUS 100 ML IV SCH ×2 (05:14→13:38)
[2021-08-17] MEDS: CLINDAMYCIN-D5W 600 MG/50 ML*** 600 MG/50 ML BAG IV SCH ×2 (05:50→12:11)
[2021-08-17 05:57] LABS: ALBUMIN 2.4 g/dL (3.5-5.0); ALKALINE PHOSPHATASE 49 U/L (38-126); ANION GAP 9.4 MEQ/L (5-15); CHLORIDE 101 mmol/L (98-107); Calcium 7.1 mg/dL (8.4-10.2); Carbon Dioxide 23 mmol/L (22-30); Creatinine 1 0.64 mg/dL (0.66-1.25); EST GLOMERULAR FILTRATION RATE > 60.0 ML/MIN; Glucose 115 mg/dL (74-106); Potassium 3.3 mmol/L (3.5-5.1); SGOT/AST 21 U/L (17-59); SGPT/ALT 13 U/L (0-50); SODIUM 130 mmol/L (137-145); Total Protein 5.6 g/dL (6.3-8.2)
[2021-08-17 06:06] LABS: BLOOD UREA NITROGEN < 2 mg/dL (9-20)
[2021-08-17] MEDS: VANCOMYCIN 1.25 GM/250 ML BAG 1.25 GM/250 ML PIGGYBACK IV SCH ×2 (06:28→14:17)
[2021-08-17] MEDS: Sodium Chloride 0.9% W/ 20 mEq KCl/LITER 1,000 ML IV SCH ×3 (09:24→09:25)
[2021-08-17] MEDS: ENOXAPARIN SODIUM SQ SCH (09:25)
[2021-08-17] MEDS: PROTONIX 40 MG IV IV SCH (09:26)
[2021-08-17] MEDS: HYDROCODONE-ACETAMIN 10-325 MG PO PRN ×2 (09:35→13:38)
[2021-08-17 16:42] VITALS: BP 94/63; PULSE 97; O2SAT 99
[2021-08-18] MEDS ORDERED: TROUGH DRUG LEVELS IJ ONE (05:30)
--- NOTE | 2021-08-26 10:47 | DS ---
DISCHARGE DIAGNOSIS: PERFORATED GASTRIC ULCER. CONSULTANTS: Dr. Alicea, operative procedure performed on 08/09/2021. HOSPITAL COURSE: The patient is a 51-year-old white male patient presenting to the emergency room with complaints of abdominal pain. CT scan showed the patient had what appeared to be a perforated gastric ulcer. Surgery was performed on . The patient was slow to improve at that time. The patient was placed on Vancomycin and Zosyn for white count of 21,000. The likelihood for the patient to develop peritonitis was considered. The patient had been NG-tube suctioned and it took a while for him to have his bowels start working again which they did eventually for which we were able to increase his oral intake. The patient finally had the NG-tube out by 08/15/2021. He afterwards was able to have clear liquids and advance to a regular diet. By 08/17/2021, the patient was felt to be ready for discharge home again. The patient was discharged home to follow up in the office in the next week, to follow up with surgery for postoperative evaluation. He is to return to the hospital in the meantime if he has any increase in problem with fever, chills or increasing abdominal pain.
== END 2021-08-17 17:25 | disposition home or self-care (01) | DRG 328 ==
LOC: ED 21:14 → MED SURG 08-09 02:03 → OBSVTOIN 08-09 07:00 → MED SURG 08-15 19:51
PROVIDERS: ADMIT Family Medicine; ATTEND Family Medicine
PROC: 0DU707Z Supplement Stomach, Pylorus with Autologous Tissue Substitute, Open Approach (ICD-10-PCS; principal; 2021-08-09)
PROC: 0DJ08ZZ Inspection of Upper Intestinal Tract, Via Natural or Artificial Opening Endoscopic (ICD-10-PCS; 2021-08-09)
PROC: 0DJ08ZZ Inspection of Upper Intestinal Tract, Via Natural or Artificial Opening Endoscopic (ICD-10-PCS; 2021-08-09)
PROC: 0W9H0ZZ Drainage of Retroperitoneum, Open Approach (ICD-10-PCS; 2021-08-09)
DX: K25.5 Chronic or unspecified gastric ulcer with perforation (principal); R10.9 Unspecified abdominal pain; D72.829 Elevated white blood cell count, unspecified; R11.2 Nausea with vomiting, unspecified; D75.839 Thrombocytosis, unspecified; E11.65 Type 2 diabetes mellitus with hyperglycemia; Z20.828 Contact with and (suspected) exposure to other viral communicable diseases
CPT/HCPCS: 0241U; 36000; 36415; 51702; 64488; 71045; 71046; 74018; 74177; 74240; 76937; 76942; 80048; 80053; 80202; 83690; 84145; 84484; 85025; 87040; 87070; 87075; 94762; 96360; 96374; 96375; 99285; J0171; J0694; J1100; J1170; J1650; J2250; J2270; J2274; J2370; J2405; J2704; J3010; A9270-GY; J3370

== ENCOUNTER 2021-11-03 07:53 | Day surgery (SDC) | payer OTHER ==
--- NOTE | 2021-11-01 14:36 | HP ---
DATE OF SURGERY: 11/03/2021 HISTORY OF PRESENT ILLNESS: The patient is a 51-year-old male who presents for endoscopy. The patient had perforated viscus back in August 2021 requiring Gage patch repair. The patient has been doing well since then. The patient reports not being on proton pump inhibitor at this time. The patient was sent for hepatic profile on his last visit in September 2021. The patient is due for screening colonoscopy. PAST MEDICAL HISTORY: Peptic ulcer disease, neuropathy. PAST SURGICAL HISTORY: Gage patch repair. Sinus surgery. ALLERGIES: NKDA. MEDICATIONS: Gabapentin, pantoprazole. FAMILY HISTORY: Heart disease, hypertension. SOCIAL HISTORY: Alcohol use. REVIEW OF SYSTEMS: CONSTITUTIONAL: Denies fever or chills. CHEST: Denies shortness of breath. CVS: Denies chest pain. ABDOMEN: Denies abdominal pain, nausea, vomiting, diarrhea, constipation or rectal bleeding. PHYSICAL EXAMINATION: GENERAL: No acute distress. CHEST: Nonlabored. No shortness of breath. CVS: Regular rate and rhythm. ABDOMEN: Soft, nontender. IMPRESSION: Follow up perforated ulcer, peptic ulcer disease and screening. PLAN: EGD and colonoscopy with Dr. Dusty Alicea. As dictated by Courtney Curran NP.
[2021-11-03] MEDS ORDERED: Lactated Ringers 1,000 ML IV SCH (08:30)
[2021-11-03] MEDS ORDERED: DIPRIVAN 200 MG/20 ML IV ONE ×2 (10:35→10:42)
[2021-11-03] MEDS ORDERED: Xylocaine-Mpf 2% 5 Ml Vial ONE (10:35)
[2021-11-03] MEDS ORDERED: Versed 2 MG/2 ML Injection ONE (10:36)
[2021-11-03 12:03] VITALS: O2SAT 99
[2021-11-03 12:04] VITALS: BP 135/88; PULSE 66
--- NOTE | 2021-11-03 12:37 | OP ---
SURGERY DATE/TIME: 11/03/2021 1038 PREOPERATIVE DIAGNOSES: 1) Follow up for peptic ulcer with Gage patch. 2) Age over 50 requiring colonoscopy. POSTOPERATIVE DIAGNOSES: 1) Moderate internal hemorrhoids. 2) Healed Gage patch with an 8 mm antral polyp near the pylorus. PROCEDURES: 1) Colonoscopy complete to cecum with hot polypectomy x1 ascending colon, 8 mm. 2) EGD with hot polypectomy x1. SURGEON: Dusty Alicea M.D. ANESTHESIA: MAC. COMPLICATIONS: None. CONDITION: Stable. INDICATION: A patient with above indications. DESCRIPTION OF PROCEDURE: Taken to endoscopy. Left lateral decubitus position. Pharyngoesophageal junction normal. MAC sedation excellent. Esophagus normal down to gastroesophageal junction. A 1 inch hiatal hernia was present. There was grade 2 gastroesophageal reflux disease. Coming down to the pylorus there was 8 mm polyp on the posterior superior wall taken with hot biopsy forceps to extinction and loan servicing representative sample submitted. Pylorus was satisfactory. The patch had totally healed and was not visible. I believe a little scar in the mucosa was visible. Second portion normal. Scope withdrawn, looped upon itself, satisfactory. Small hiatal hernia. Anal digital examination normal. Scope introduced. Scope advanced to the cecum. Base of cecum, ileocecal valve and appendiceal orifice all satisfactory. Ascending colon, mid ascending 8 mm polyp anterior wall taken with hot biopsy forceps. Hepatic, transverse, splenic, descending, sigmoid, rectum and anus. Moderate internal hemorrhoids. The patient tolerated the procedure satisfactorily.
== END 2021-11-03 12:11 | disposition home or self-care (01) ==
LOC: SDC 07:53
PROVIDERS: ATTEND Surgery
DX: Z12.11 Encounter for screening for malignant neoplasm of colon (principal); Z09 Encounter for follow-up examination after completed treatment for conditions other than malignant neoplasm; Z87.11 Personal history of peptic ulcer disease; K64.8 Other hemorrhoids; K44.9 Diaphragmatic hernia without obstruction or gangrene; K21.9 Gastro-esophageal reflux disease without esophagitis; K31.7 Polyp of stomach and duodenum; D12.2 Benign neoplasm of ascending colon
CPT/HCPCS: J2250; J2704